=== PATIENT | male | born 1965 | race Caucasian/White ===

== ENCOUNTER 2018-03-09 16:35 | Emergency (ER) | payer OTHER ==
[~2018-03-09] VITALS: Ht 175.3 cm; Wt 88.0 kg
[~2018-03-09 16:35] MED LIST: CEFUROXIME500 MG PO; HYZAAR 100-121 UDTAB; KETO10TA2 PO; ORPH100T PO; PROTONIX40 MG; PROTONIX40 MG PO; TESSALON200 MG PO; TUSSI PRES-B L120 M1 PO; VYTORIN 10-40 M1 TAB; ZITHROMAX TRI-500 MG PO
[2018-03-09] MEDS ORDERED: COZAAR25 MG (16:41)
[2018-03-09] MEDS ORDERED: VYTORIN 10-401 EACH (16:41)
[2018-03-09] MEDS ORDERED: CELEBREX100 MG PO (18:11)
== END 2018-03-09 18:44 | disposition home or self-care (01) ==
LOC: ER
DX: S73.191A Other sprain of right hip, initial encounter (principal); W18.39XA Other fall on same level, initial encounter; Y93.89 Activity, other specified; Y92.520 Airport as the place of occurrence of the external cause; Y99.8 Other external cause status

== ENCOUNTER 2022-08-10 07:41 | Outpatient (CLI) | payer OTHER ==
[~2022-08-10 07:41] MED LIST changes: +CELEBREX100 MG PO; +COZAAR25 MG; +VYTORIN 10-401 EACH
== END 2022-08-10 07:47 | disposition home or self-care (01) ==
LOC: MRI 07:41
DX: S86.911A Strain of unspecified muscle(s) and tendon(s) at lower leg level, right leg, initial encounter (principal); S86.912A Strain of unspecified muscle(s) and tendon(s) at lower leg level, left leg, initial encounter; S76.012A Strain of muscle, fascia and tendon of left hip, initial encounter; S76.011A Strain of muscle, fascia and tendon of right hip, initial encounter
CPT/HCPCS: 72195; 73721